=== PATIENT | male | born 1960 | race Caucasian/White ===

== ENCOUNTER 2016-04-25 19:54 | Emergency (ER) | payer MEDICAID ==
--- NOTE | 2016-04-25 20:28 | EDPHY ---
H & P Smoking Status: Current every day smoker Time Seen by Provider: 04/25/16 19:58 HPI/ROS: HPI Suicidal, off psych meds. 55-year-old male by ambulance. This patient has a history of severe depressive disorder and alcohol abuse. He is also homeless. He reports that he was seen at [facility] earlier today with complaint of depression and suicidal ideation. He was given Valium and discharge. He then went to the [facility] with the same complaint, he was given oral Ativan and discharged from there. He told the staff there that he was going to jump in front of traffic and that he felt unstable because he has been off his meds for weeks and was suicidal. They called the ambulance service and was brought to our emergency department for evaluation. ROS: Constitutional: No fever, no chills. No weakness. Eyes: No discharge. No changes in vision. ENT: No sore throat. No nasal congestion or rhinorrhea. Respiratory: No cough. No shortness of breath. Cardiac: No chest pain, no palpitations. Gastrointestinal: No abdominal pain, no vomiting, no diarrhea. Genitourinary: No hematuria. No dysuria or increased frequency with urination. Musculoskeletal: No back pain. No neck pain. No myalgias or arthralgias. Skin: No rashes. Neurological: No headache. No focal weakness or altered sensation. Past medical history: Alcohol abuse, severe depressive disorder head injury, head injury, coronary artery disease, pneumonia, COPD, homeless. Social history: Homeless. History of alcohol abuse. Drinks a pt of whiskey a day at least. States his last drink was this morning. Smoker. Physical Exam: General Appearance: Alert, mildly agitated. This patient is responding to questions appropriately and in full sentences. This patient appears well- hydrated and well-nourished. Eyes: Pupils equal and round no pallor or injection. No lid edema, erythema or injection. ENT, Mouth: Poor dentition. Mucous membranes are moist. The pharyngeal tissues are unremarkable. No edema or swelling. No asymmetry suggestive of abscess. No erythema or exudates. Respiratory: There are no retractions, lungs are clear to auscultation with good air movement bilaterally. Cardiovascular: Regular rate and rhythm. No murmur. Gastrointestinal: Abdomen is soft and nontender, no masses, bowel sounds normal. No focal tenderness at McBurney's point. No Jordan sign. Neurological: Motor sensory function is grossly intact. Cranial nerves are normal. Gait is normal. Skin: Warm and dry, no rashes. Musculoskeletal: Neck is supple and nontender. Extremities are symmetrical. All joints range without pain or impingement. Psychiatric: As above. Database: EKG: Imaging: Procedures: Emergency department course: IV placed. Appropriate blood work will be sent. [facility] notified at 8:30 p.m.. The patient is clinically sober responding to questions appropriately to me. Feel he is suitable for evaluation by [facility]. 9:30 p.m., patient had a preliminary evaluation by [facility]. They do want to place him on an M1 hold. And have him evaluated once his blood work and urine tox screens are back. 11:50 p.m., patient awaiting evaluation by [facility]. He has been medically cleared. His care was turned over to Dr. Cortez Whipple. Differential Diagnosis: The differential diagnosis on this patient includes but is not limited to major depression, situational depression, mood disorder, alcohol abuse, malingering. This represents a partial list of diagnoses considered. These considerations are based on history, physical exam, past history, reassessment and diagnostic testing. (Kelvin West) Constitutional: Initial Vital Signs Temperature (C) 37.0 C 04/25/16 19:55 Heart Rate 90 04/25/16 19:55 Respiratory Rate 16 04/25/16 19:55 Blood Pressure 99/69 L 04/25/16 19:55 O2 Sat (%) 93 04/25/16 19:55 O2 Delivery Mode Room Air Allergies/Adverse Reactions: codeine Allergy (Verified 04/28/15 15:15) Home Medications: Medication Instructions Recorded ARIPiprazole [Abilify 10 mg (*)] 20 mg PO DAILY #30 tab 06/11/15 Cyclobenzaprine [Flexeril 10 MG 10 mg PO TID #45 tab 06/11/15 (*)] FLUoxetine [Prozac 10 MG (*)] 30 mg PO DAILY #45 cap 06/11/15 Famotidine [Pepcid 20 MG (*)] 20 mg PO BID #30 tab 06/11/15 Gabapentin [Neurontin 300 MG (*)] 300 mg PO BID #30 cap 03/04/16 Hydrochlorothiazide [HCTZ (*)] 25 mg PO DAILY #30 tab 06/11/15 Hydrocodone/APAP 5/325 [[place] 1 tab PO Q4 PRN #45 tab 06/11/15 5/325 (*)] Pantoprazole Sodium [Protonix 40mg 40 mg PO BID #60 tab 06/11/15 (*)] clonazePAM [klonoPIN (*)] 1 mg PO BID #30 tab 06/11/15 traZODone [traZODONE 100MG (*)] 150 mg PO HS #30 tab 06/11/15 AZITHROMYCIN [Z-PACK] 250 mg PO DAILY #1 packet 11/19/15 Albuterol [Proventil Inhaler] 1 - 2 puffs IH Q4 #1 mdi 11/19/15 predniSONE 40 mg PO DAILY #10 tab 11/19/15 Medical Decision Making ED Course/Re-evaluation: 0735: patient has been evaluated by EPS. There pending placement. Patient signed over at 7:00 a.m. shift change to Dr. Trejo. No acute events overnight. (Cortez Whipple) Other Provider: I assumed care at 7:00 a.m.. The patient is currently awaiting placement. He has been medically cleared and been evaluated by Mental Health. He has a history of depression, alcohol abuse and homelessness and is contemplating running into traffic. He is on a M1 hold. 3:00 p.m. care transferred to Dr. Cuco Puente. (Gabino Trejo) I assumed care of the patient at shift changed with evaluation/possible placement in process. Update at 5:00 p.m.: The patient has been accepted at the [facility] for further psychiatric stabilization. I have filled out the EMTALA transfer form. (Cuco Puente) - Data Points Laboratory Results: Laboratory Results 04/25/16 21:02 04/25/16 21:02 Medications Given: Discontinued Medications Chlordiazepoxide HCl (Librium) 25 mg PO EDNOW ONE Stop: 04/26/16 11:30 Last Admin: 04/26/16 11:49 Dose: 25 mg Lorazepam (Ativan Injection) 1 mg IVP EDNOW ONE Stop: 04/26/16 12:20 Last Admin: 04/26/16 12:20 Dose: 1 mg Departure - Departure Disposition: Other Psych, Not Dave Clinical Impression: Alcohol abuse Depression Qualifiers: Depression Type: major depressive disorder Major depression recurrence: single episode Active/Remission status: currently active Major depression episode severity: severe Psychotic features: without psychotic features Qualifier Code: (F32.2) Major depressive disorder, single episode, severe without psychotic features Condition: Fair Referrals: Patient,NotPresent [Unknown] - As per Instructions
[2016-04-25 21:06] LABS: % IMMATURE GRANULYOCYTES 0.4 % (0.0-1.1); ABSOLUTE IMMATURE GRANULOCYTES 0.02 10^3/uL (0.00-0.10); ADD DIFF? NO; ADD MORPH? NO; ADD SCAN? NO; ATYPICAL LYMPHOCYTE FLAG 10 (0-99); FRAGMENT RBC FLAG 0 (0-99); HEMATOCRIT 36.8 % (40.0-51.0); HEMOGLOBIN 11.9 g/dL (13.7-17.5); LEFT SHIFT FLG 0 (0-99); LIPEMIA HEMOLYSIS FLAG 80 (0-99); MEAN CELL HEMOGLOBIN 27.6 pg (27.9-34.1); MEAN CELL HEMOGLOBIN CONCENTR. 32.3 g/dL (32.4-36.7); MEAN CELL VOLUME 85.4 fL (81.5-99.8); MEAN PLATELET VOLUME 8.6 fL (8.7-11.7); PLATELET CLUMPS FLAG 0 (0-99); PLATELET COUNT 259 10^3/uL (150-400); RED BLOOD CELL COUNT 4.31 10^6/uL (4.40-6.38)
[2016-04-25 21:20] LABS: ANION GAP 8 mEq/L (8-16); CALCIUM 8.7 mg/dL (8.5-10.4); CARBON DIOXIDE 25 mEq/l (22-31); CHLORIDE 105 mEq/L (97-110); CREATININE 0.8 mg/dL (0.7-1.3); ETHANOL SERUM < 10 mg/dL (0-10); GLOMERULAR FILTRATION RATE > 60; GLUCOSE 103 mg/dL (70-100); POTASSIUM 4.4 mEq/L (3.5-5.2); SALICYLATE < 1.0 mg/dL (2.0-20.0); SODIUM 138 mEq/L (134-144)
[2016-04-26] MEDS ORDERED: chlordiazePOXIDE 25 MG CAP PO ONE (11:29)
[2016-04-26] MEDS ORDERED: LORazepam 2 MG/ML INJ ONE (12:15)
[2016-04-26] MEDS ORDERED: LORazepam 2 MG/ML INJ IVP ONE (12:19)
[2016-04-27] MEDS ORDERED: LORazepam 1 MG TAB PO ONE ×2 (08:41→13:51)
[2016-04-27] MEDS ORDERED: FAMOTIDINE 20 MG TAB PO ONE (08:41)
[2016-04-27 14:24] VITALS: BP 124/76; PULSE 71; RESP 17; TEMP 98.4; O2SAT 96
== END 2016-04-27 14:22 ==
LOC: EDUNIT#
DX: R45.851 Suicidal ideations (principal); F32.2 Major depressive disorder, single episode, severe without psychotic features; F10.10 Alcohol abuse, uncomplicated; I25.10 Atherosclerotic heart disease of native coronary artery without angina pectoris; J44.9 Chronic obstructive pulmonary disease, unspecified; F17.200 Nicotine dependence, unspecified, uncomplicated
CPT/HCPCS: 80305; 96374; G0480

== ENCOUNTER 2016-05-24 20:54 | Emergency (ER) | payer MEDICAID ==
[2016-05-24 22:04] LABS: % IMMATURE GRANULYOCYTES 0.3 % (0.0-1.1); ABSOLUTE IMMATURE GRANULOCYTES 0.02 10^3/uL (0.00-0.10); ADD DIFF? NO; ADD MORPH? NO; ADD SCAN? NO; ATYPICAL LYMPHOCYTE FLAG 0 (0-99); FRAGMENT RBC FLAG 0 (0-99); HEMATOCRIT 34.9 % (40.0-51.0); HEMOGLOBIN 11.5 g/dL (13.7-17.5); LEFT SHIFT FLG 0 (0-99); LIPEMIA HEMOLYSIS FLAG 80 (0-99); MEAN CELL HEMOGLOBIN 28.5 pg (27.9-34.1); MEAN CELL VOLUME 86.6 fL (81.5-99.8); MEAN PLATELET VOLUME 9.3 fL (8.7-11.7); PLATELET CLUMPS FLAG 0 (0-99); PLATELET COUNT 220 10^3/uL (150-400); RED BLOOD CELL COUNT 4.03 10^6/uL (4.40-6.38); RED CELL DISTRIBUTION WIDTH 14.9 % (11.5-15.2)
[2016-05-24 22:38] LABS: ANION GAP 7 mEq/L (8-16); CALCIUM 9.1 mg/dL (8.5-10.4); CARBON DIOXIDE 25 mEq/l (22-31); CHLORIDE 106 mEq/L (97-110); CREATININE 0.7 mg/dL (0.7-1.3); ETHANOL SERUM < 10 mg/dL (0-10); GLOMERULAR FILTRATION RATE > 60; GLUCOSE 115 mg/dL (70-100); POTASSIUM 3.6 mEq/L (3.5-5.2); SODIUM 138 mEq/L (134-144)
--- NOTE | 2016-05-24 23:02 | EDPHY ---
Mental Health General Previous Psychiatric History: substance abuse, depression Smoking Status: Heavy smoker Time Patient Placed on M1 Hold: 20:10 Time of Transfer of Care: 00:[address]:: David Course: patient remained stable over course of my shift Narrative: CHIEF COMPLAINT: M1 hold HISTORY OF PRESENT ILLNESS: 55-year-old male presents to the emergency department on an M1 hold from [facility]. Patient is having auditory and visual hallucinations and is paranoid that people are out to get him. Patient has disorganized thoughts. He reports he snorted methamphetamines 3 days ago, reports he smokes marijuana daily, alcohol last yesterday. He reports multiple hospitalizations for suicidal thoughts. He denies feeling suicidal at this time. He denies homicidal ideations. Patient denies any pain. No chest pain or shortness of breath. No abdominal pain. REVIEW OF SYSTEMS: A comprehensive 10 point review of systems is otherwise negative aside from elements mentioned in the history of present illness. Physical Exam Gen: Awake and alert HEENT: moist mucous membranes NECK: no meningismus CV: regular rate and regular rhythm PULM: CTAB, no wheezes ABDOMEN: soft, non tender to palpation, BS present BACK: No CVA tenderness NEURO: Follows commands, no facial asymmetry, moves all extremities EXTREMITIES: normal appearing SKIN: no rash or break in skin on exposed skin PSYCH: Patient with rapid speech, reports auditory hallucinations, visual hallucinations, denies suicidal ideations. (Swathi Hu) [id number] patient signed out to al from ESMER Hu pending mental health evaluation. ( Kamar Hernandez) Patient's care transferred to al at 7:[address] Marcin Ochoa. Patient is awake and alert and eating breakfast. He had methamphetamine positive at 11:00 p.m. and we will be evaluated later this morning. He is on a hold. 2:55 a.m. mental Health has evaluated the patient. They feel that he is safe for discharge all the patient is not happy about this. he stated that he would kill himself if discharged but it is my feeling and the mental health workers that he is simply stating this because his secondary motivation is retirement. He has been admitted several times in the past under similar conditions and no significant progress made during inpatient stay. They will consult their on-call psychiatrist. Care transferred to Dr. Corky Flanagan at shift change. (Gabino Trejo) Medical Decision Makin-Report passed on to Dr. Hernandez at the end of my shift. Pt urine tox screen is positive for meth. He is medically cleared. EPS will evaluate him in 8 hours. (Swathi Hu) The patient has been evaluated by mental health and they would like to discharge him is had multiple admissions they feel he does not meet criteria. The patient escalated and then has threatened to harm himself at discharge. He has been re-evaluated by mental health in the current agreement is that the patient will go to detox on a Librium protocol as he is also a drinker and to prevent alcohol withdrawal. (Corky Flanagan) - Objective Vital Signs: Initial Vital Signs Temperature (C) 36.3 C 05/24/16 21:04 Heart Rate 97 05/24/16 21:04 Respiratory Rate 12 05/24/16 21:04 Blood Pressure 128/86 H 05/24/16 21:04 O2 Sat (%) 96 05/24/16 21:04 O2 Delivery Mode Room Air Allergies/Adverse Reactions: codeine Allergy (Verified 04/28/15 15:15) Home Medications: Medication Instructions Recorded NK [No Known Home Meds] 05/25/16 Medications Given: Discontinued Medications Acetaminophen/Hydrocodone Bitart ([place] 5/325) 1 tab PO EDNOW ONE Stop: 05/25/16 06:24 Last Admin: 05/25/16 06:32 Dose: 1 tab Ibuprofen (Motrin) 600 mg PO EDNOW ONE Stop: 05/25/16 08:21 Last Admin: 05/25/16 08:24 Dose: 600 mg Lorazepam (Ativan) 1 mg PO EDNOW ONE Stop: 05/24/16 23:33 Last Admin: 05/24/16 23:40 Dose: 1 mg Lorazepam (Ativan) 0.25 mg PO EDNOW ONE Stop: 05/25/16 12:22 Last Admin: 05/25/16 12:28 Dose: 0.25 mg Lorazepam (Ativan) 0.5 mg PO ONCE ONE Stop: 05/25/16 15:07 Last Admin: 05/25/16 15:15 Dose: 0.5 mg Laboratory Results: Laboratory Results 05/24/16 21:45 05/24/16 21:45 Departure - Departure Disposition: Home, Routine, Self-Care Clinical Impression: Polysubstance abuse Condition: Fair Instructions: Chlordiazepoxide/Clidinium (By mouth) Additional Instructions: Please go directly to [facility] as agreed upon they are expecting you (in cab ride given)--return for future issues or feeling unsafe Referrals: Patient,NotPresent [Unknown] - As per Instructions
[2016-05-24] MEDS ORDERED: LORazepam 1 MG TAB PO ONE (23:32)
[2016-05-25] MEDS ORDERED: HYDROCODONE/APAP 5/325 TAB PO ONE (06:23)
[2016-05-25] MEDS ORDERED: IBUPROFEN 600 MG TAB PO ONE ×2 (08:20→16:24)
[2016-05-25 08:26] VITALS: RESP 16; O2SAT 98
[2016-05-25] MEDS ORDERED: LORazepam 0.5 MG TAB PO ONE ×2 (12:21→15:06)
[2016-05-25] MEDS ORDERED: CHLORDIAZEPOXIDE 25MG PREPK#6 BTL TAKEHOME ONE (16:16)
[2016-05-25] MEDS ORDERED: FAMOTIDINE 20 MG TAB ONE (16:47)
[2016-05-25] MEDS ORDERED: FAMOTIDINE 20 MG TAB PO ONE (16:47)
[2016-05-25 17:09] VITALS: BP 135/76; PULSE 87; TEMP 97.7
== END 2016-05-25 17:09 | disposition home or self-care (01) ==
LOC: EDUNIT#
DX: F19.10 Other psychoactive substance abuse, uncomplicated (principal); F17.200 Nicotine dependence, unspecified, uncomplicated
CPT/HCPCS: 80305; G0480

== ENCOUNTER 2016-07-04 20:58 | Emergency (ER) | payer MEDICAID ==
[2016-07-04 21:46] LABS: % IMMATURE GRANULYOCYTES 0.3 % (0.0-1.1); ABSOLUTE IMMATURE GRANULOCYTES 0.02 10^3/uL (0.00-0.10); ADD DIFF? NO; ADD MORPH? NO; ADD SCAN? NO; ATYPICAL LYMPHOCYTE FLAG 20 (0-99); FRAGMENT RBC FLAG 0 (0-99); HEMATOCRIT 43.1 % (40.0-51.0); HEMOGLOBIN 14.3 g/dL (13.7-17.5); LEFT SHIFT FLG 0 (0-99); LIPEMIA HEMOLYSIS FLAG 80 (0-99); MEAN CELL HEMOGLOBIN 28.9 pg (27.9-34.1); MEAN CELL HEMOGLOBIN CONCENTR. 33.2 g/dL (32.4-36.7); MEAN CELL VOLUME 87.1 fL (81.5-99.8); PLATELET CLUMPS FLAG 0 (0-99); PLATELET COUNT 221 10^3/uL (150-400); RED BLOOD CELL COUNT 4.95 10^6/uL (4.40-6.38); RED CELL DISTRIBUTION WIDTH 16.2 % (11.5-15.2)
[2016-07-04 21:59] LABS: ANION GAP 9 mEq/L (8-16); CALCIUM 9.2 mg/dL (8.5-10.4); CARBON DIOXIDE 25 mEq/l (22-31); CHLORIDE 103 mEq/L (97-110); CREATININE 0.9 mg/dL (0.7-1.3); ETHANOL SERUM < 10 mg/dL (0-10); GLOMERULAR FILTRATION RATE > 60; GLUCOSE 107 mg/dL (70-100); POTASSIUM 4.1 mEq/L (3.5-5.2); SALICYLATE < 1.0 mg/dL (2.0-20.0); SODIUM 137 mEq/L (134-144)
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
[2016-07-04] MEDS ORDERED: FAMOTIDINE 20 MG TAB PO ONE (23:24)
[2016-07-05] MEDS: ARIPiprazole 10 MG TAB PO SCH ×2 (00:03→09:23)
[2016-07-05 07:53] VITALS: RESP 16
[2016-07-05 13:02] VITALS: O2SAT 96
[2016-07-05 18:42] VITALS: BP 106/76; PULSE 85; TEMP 98.2
== END 2016-07-05 19:50 ==
DX: R45.851 Suicidal ideations (principal); F33.2 Major depressive disorder, recurrent severe without psychotic features; F17.200 Nicotine dependence, unspecified, uncomplicated
CPT/HCPCS: 80305; G0480

== ENCOUNTER 2016-11-09 08:15 | Inpatient (IN) | payer MEDICAID ==
[2016-11-09] MEDS ORDERED: LORazepam 2 MG/ML INJ ONE (08:26)
[2016-11-09] MEDS ORDERED: LORazepam 2 MG/ML INJ IVP ONE (08:26)
[2016-11-09] MEDS ORDERED: NS 1,000 ML IV ONE (08:35)
--- NOTE | 2016-11-09 08:37 | CPEKG ---
Heart Rate: 68 RR Interval: 882 P-R Interval: 132 QRSD Interval: 90 QT Interval: 436 QTC Interval: 464 P [place]: 76 QRS [place]: 83 T Wave [place]: 82 EKG Severity - ABNORMAL ECG - EKG Impression: SINUS RHYTHM EKG Impression: LEFT ATRIAL ABNORMALITY Electronically Signed By: Praveen Houston 09-Nov-2016 15:27:18
[2016-11-09 08:40] LABS: % IMMATURE GRANULYOCYTES 0.3 % (0.0-1.1); ABSOLUTE IMMATURE GRANULOCYTES 0.04 10^3/uL (0.00-0.10); ADD DIFF? NO; ADD MORPH? NO; ADD SCAN? NO; ATYPICAL LYMPHOCYTE FLAG 0 (0-99); FRAGMENT RBC FLAG 0 (0-99); LEFT SHIFT FLG 0 (0-99); LIPEMIA HEMOLYSIS FLAG 90 (0-99); MEAN CELL HEMOGLOBIN 30.6 pg (27.9-34.1); MEAN CELL HEMOGLOBIN CONCENTR. 35.9 g/dL (32.4-36.7); MEAN CELL VOLUME 85.2 fL (81.5-99.8); MEAN PLATELET VOLUME 9.5 fL (8.7-11.7); PLATELET CLUMPS FLAG 10 (0-99); PLATELET COUNT 262 10^3/uL (150-400); RED BLOOD CELL COUNT 4.58 10^6/uL (4.40-6.38)
--- NOTE | 2016-11-09 08:40 | EDPHY ---
H & P Time Seen by Provider: 11/09/16 08:21 - Personal History Tetanus Vaccine Date: 2014 - Medical/Surgical History Hx Asthma: Yes Hx Chronic Respiratory Disease: Yes Hx Diabetes: No Hx Cardiac Disease: Yes Hx Renal Disease: Yes Hx Cirrhosis: No Hx Alcoholism: Yes Hx HIV/AIDS: No Hx Splenectomy or Spleen Trauma: No Other PMH: asthma, hep C, COPD, CAD, depression, GERD, cardiac stents x 2, subdural hematoma, chronic back pain, renal failure - Social History Smoking Status: Heavy smoker Constitutional: Initial Vital Signs Temperature (C) 35.2 C L 11/09/16 08:20 Heart Rate 76 11/09/16 08:20 Respiratory Rate 20 11/09/16 08:20 Blood Pressure 121/72 H 11/09/16 08:20 O2 Sat (%) 98 11/09/16 08:20 O2 Delivery Mode Room Air Allergies/Adverse Reactions: codeine Allergy (Verified 04/28/15 15:15) Home Medications: Medication Instructions Recorded NK [No Known Home Meds] 05/25/16 Medical Decision Making - Diagnostics Imaging Results: Imaging Impressions Chest X-Ray 11/09/16 08:27 Impression: Nothing acute identified. ED Course/Re-evaluation: CHIEF COMPLAINT: Chest pain. HISTORY OF PRESENT ILLNESS: The patient is a 55-year-old male with a history of CAD and 2 stents who presents with chest pain and chills that began last night. He admits associated vomiting and cough. The pain is severe and described as a pressure. He denies abdominal pain, fever, diarrhea, or other complaints at this time. REVIEW OF SYSTEMS: A 10 point review of systems was performed and is negative with the exception of the elements mentioned in the history of present illness. PHYSICAL EXAM: HR, BP, O2 Sat, RR. Temp noted General Appearance: Alert, well hydrated, appropriate, and non-toxic appearing. Head: Atraumatic without scalp tenderness or obvious injury Eyes: Pupils equal, round, reactive to light and accommodation, EOMI, no trauma , no injection. Ears: Clear bilaterally, no perforation, normal landmarks Nose: Atraumatic, no rhinorrhea, clear. Throat: There is no erythema or exudates, no lesions, normal tonsils, mucus membranes moist. Neck: Supple, 2+ carotid upstroke, nontender, no lymphadenopathy. Respiratory: No retractions, no distress, no wheezes, and no accessory muscle use. Lungs are clear to auscultation bilaterally. Cardiovascular: Regular rate and rhythm, no murmurs, rubs, or gallops. Bilateral carotid, radial, dorsalis pedis, and posterior tibial pulses intact. Good capillary refill all extremities. Gastrointestinal: Abdomen is soft, nontender, non-distended, no masses, no rebound, no guarding, no peritoneal signs. Musculoskeletal: Normal active ROM of all extremities, atraumatic. Neurological: Alert, appropriate, and interactive. The patient has normal DTRs and non-focal cranial nerves, motor, sensory, and cerebellar exam. Skin: No rashes, good turgor, no nodules on palpation. Past medical history: Asthma, hep C, COPD, CAD, depression, GERD, cardiac stents x 2, subdural hematoma, chronic back pain, renal failure Family history: Unknown. Social history: Homeless. DIAGNOSTICS/PROCEDURES/CRITICAL CARE TIME: The 12 lead EKG was interpreted by myself. See hard copy and/or "tracemaster" electronic copy for interpretation. Sinus rhythm, slight ST elevation in precordial leads. Study: PA and Lateral Chest X-ray Indication: Chest pain Results: I viewed the images myself on the PACS system. My interpretation of the images is: no acute cardiopulmonary disease. The radiologist interpretation is pending at the time of this dictation. DIFFERENTIAL DIAGNOSIS: The differential diagnosis for the patient's chest pain included but was not limited to myocardial ischemia, pulmonary embolus, chest wall pain, pleural inflammation, and pulmonary infectious causes. MEDICAL DECISION MAKIN-year-old male with CAD and 2 cardiac stents presents with chest pain and chills. An IV was established and labs ordered including cardiac enzymes. EKG, chest x-ray ordered. Due to his history I am concerned for a cardiac process. 1mg IV Ativan administered. Temperature 35.2. Bairhugger placed. EKG shows slight ST elevation in precordial leads but no outright signs of [place]. I reviewed the patient's laboratory studies. WBC elevated at 12.16 indicating possible infectious process. He shows signs of renal insufficiency including creatinine of 1.9. Troponin elevated at 0.054, however this could be due to his elevated creatinine and insufficiency. Plan for admission for further workup. Cardiology paged. [id number]: Consulted with Dr. Flores, cardiology. I informed him of the patient's course. [id number]: Consulted with Brittanie Rivero, hospitalist. She accepts admission for Dr. Ren. - Data Points Laboratory Results: Laboratory Results 11/09/16 08:30 11/09/16 08:30 11/09/16 11/09/16 11/09/16 08:30 08:30 08:30 WBC 12.16 10^3/uL H 10^3/uL (3.80-9.50) RBC 4.58 10^6/uL 10^6/uL (4.40-6.38) Hgb 14.0 g/dL g/dL (13.7-17.5) Hct 39.0 % L % (40.0-51.0) MCV 85.2 fL fL (81.5-99.8) MCH 30.6 pg pg (27.9-34.1) MCHC 35.9 g/dL g/dL (32.4-36.7) RDW 12.0 % % (11.5-15.2) Plt Count 262 10^3/uL 10^3/uL (150-400) MPV 9.5 fL fL (8.7-11.7) Neut % (Auto) 83.0 % H % (39.3-74.2) Lymph % (Auto) 9.0 % L % (15.0-45.0) [place] % (Auto) 7.5 % % (4.5-13.0) Eos % (Auto) 0.0 % L % (0.6-7.6) Baso % (Auto) 0.2 % L % (0.3-1.7) Nucleat RBC Rel Count 0.0 % % (0.0-0.2) Absolute Neuts (auto) 10.10 10^3/uL H 10^3/uL (1.70-6.50) Absolute Lymphs (auto) 1.09 10^3/uL 10^3/uL (1.00-3.00) Absolute Monos (auto) 0.91 10^3/uL H 10^3/uL (0.30-0.80) Absolute Eos (auto) 0.00 10^3/uL L 10^3/uL (0.03-0.40) Absolute Basos (auto) 0.02 10^3/uL 10^3/uL (0.02-0.10) Absolute Nucleated RBC 0.00 10^3/uL 10^3/uL (0-0.01) Immature Gran % 0.3 % % (0.0-1.1) Immature Gran # 0.04 10^3/uL 10^3/uL (0.00-0.10) PT 13.7 SEC SEC (12.0-15.0) INR 1.06 (0.83-1.16) APTT 26.6 SEC SEC (23.0-38.0) D-Dimer 0.36 ug/mLFEU ug/mLFEU (0.00-0.50) Sodium 137 mEq/L mEq/L (134-144) Potassium 4.4 mEq/L mEq/L (3.5-5.2) Chloride 101 mEq/L mEq/L (97-110) Carbon Dioxide 10 mEq/l L mEq/l (22-31) Anion Gap 26 mEq/L H mEq/L (8-16) BUN 83 mg/dL H mg/dL (7-23) Creatinine 1.9 mg/dL H mg/dL (0.7-1.3) Estimated GFR 37 Glucose 82 mg/dL mg/dL (70-100) Calcium 9.3 mg/dL mg/dL (8.5-10.4) Troponin I 0.054 ng/mL H ng/mL (0-0.034) NT-Pro-B Natriuret Pep 926 pg/mL H pg/mL (0-125) Medications Given: Discontinued Medications Sodium Chloride (Ns) 1,000 mls @ 0 mls/hr IV ONCE ONE PRN Reason: Wide Open Stop: 11/09/16 08:36 Last Admin: 11/09/16 08:36 Dose: 1,000 mls Lorazepam (Ativan Injection) 1 mg IVP EDNOW ONE Stop: 11/09/16 08:27 Last Admin: 11/09/16 08:30 Dose: 1 mg Departure - Departure Disposition: [facility] Clinical Impression: Elevated troponin, Dehydration Chest pain Qualifiers: Chest pain type: unspecified Qualified Code(s): R07.9 - Chest pain, unspecified Condition: Fair Report Scribed for: Praveen Houston Report Scribed by: Norm Hernandez Date of Report: 11/09/16 Time of Report: 08:44
[2016-11-09 09:00] LABS: ANION GAP 26 mEq/L (8-16); CALCIUM 9.3 mg/dL (8.5-10.4); CARBON DIOXIDE 10 mEq/l (22-31); CHLORIDE 101 mEq/L (97-110); CREATININE 1.9 mg/dL (0.7-1.3); GLOMERULAR FILTRATION RATE 37; GLUCOSE 82 mg/dL (70-100); POTASSIUM 4.4 mEq/L (3.5-5.2); SODIUM 137 mEq/L (134-144)
[2016-11-09 09:27] LABS: INR 1.06 (0.83-1.16); PROTIME(PATIENT) 13.7 SEC (12.0-15.0)
[2016-11-09 09:28] LABS: APTT 26.6 SEC (23.0-38.0); TROPONIN I 0.054 ng/mL (0-0.034)
[2016-11-09] MEDS ORDERED: ALBUTEROL 3 ML DEYVIAL IH PRN (12:28)
[2016-11-09] MEDS ORDERED: PROMETHAZINE HCL 25 MG/ML INJ IVP PRN (12:28)
[2016-11-09] MEDS ORDERED: ONDANSETRON DISINTEGRATING 4 MG TAB PO PRN (12:28)
[2016-11-09] MEDS ORDERED: ONDANSETRON 4 MG/2 ML VIAL IVP PRN (12:28)
[2016-11-09] MEDS: NS 1,000 ML IV SCH (13:14)
--- NOTE | 2016-11-09 14:09 | WOCRNPDOC ---
WOCRN Advanced Assessment Note - Skin Integrity Problem, Advanced Assess Sacrum Dressing Type: Open to Air Exudate Amount: None Exudate Characteristic(s): None Maia Wound Tissue: Blanching, Intact Maia Wound Swelling: None Wound Bed Color: Red Skin Integrity Problem Comment: Blanching erythema noted on either side of gluteal cleft and extending up his sacrum, appearance consistent w/ dermatitis r /t exposure to stool/moisture. Skin is blanching throughout and intact. Recommend application of dimethicone cream BID. Report given to home and family living professorAMIRAH Sierra.
[2016-11-09] MEDS: HEPARIN 5,000 UNIT/0.5 ML SYR SC SCH ×2 (14:15→23:39)
[2016-11-09 15:08] LABS: COLOR YELLOW; LEUKOCYTE ESTERASE,URINE NEGATIVE (NEGATIVE); NITRITE,URINE NEGATIVE (NEGATIVE)
[2016-11-09 15:53] LABS: PHENCYCLIDINE URINE BCH < 6 ng/ml (NEGATIVE); PHENCYCLIDINE URINE BCH NEGATIVE (NEGATIVE); TETRAHYDROCANNABINOL URINE < 5 ng/mL (NEGATIVE); TETRAHYDROCANNABINOL URINE NEGATIVE (NEGATIVE)
[2016-11-09] MEDS: LORazepam 2 MG/ML INJ IVP PRN ×2 (16:18→23:41)
--- NOTE | 2016-11-09 16:25 | PDGENHP ---
History and Physical - Chief Complaint chest pain/memory loss - History of Present Illness 55 yo M with PMH of CAD sp NV with stents as well as etoh abuse and homelessness presenting with c/o chest pain and memory loss. Patient states that he has little to no recollection of the last 3 days. He states that he was brought in by EMS when he was found staggering around and knocking on houses of people he did not know. He denies to me that he was drinking or using drugs for the last several days, but reportedly told the nurse on admit that he was "partying" and using meth. He denies every having memory issues like this in the past. He notes that currently his main issue is just that he has ongoing substernal chest pain. It does not radiate and is not associated with other sxs including nausea or diaphoresis. He states that the chest pain is very similar to the chest pain he had when he had an NV years ago. He has been seen in this hospital as well as other local hospitals for similar pain in the recent past, and did have a cardiac cath in 2014 which was negative for significant CAD. History Information - Allergies/Home Medication List Allergies/Adverse Reactions: codeine Allergy (Verified 04/28/15 15:15) Home Medications: NK [No Known Home Meds] 05/25/16 [Last Taken Unknown] I have personally reviewed and updated: family history, medical history, social history, surgical history - Past Medical History coronary artery disease, COPD, hypertension, psychiatric history (multiple psych visits for suicidal ideation/suicide attempt) Additional medical history: Hepatitis C. MRSA cellulitis. SDH - Surgical History Reports: coronary stent - Family History Positive for: CAD (father of NV at 70) - Social History Smoking Status: Heavy smoker Alcohol Use: Heavy Drug Use: Marijuana Additional social history: homeless, apparently has 2 children who live in other states Review of Systems ROS: 10pt was reviewed & negative except for what was stated in HPI & below Physical Exam Temp Pulse Resp BP Pulse Ox 36.5 C 78 16 117/67 99 11/09/16 11:05 11/09/16 11:05 11/09/16 11:05 11/09/16 11:05 11/09/16 11:05 O2 (L/minute) 2 Constitutional: not in pain, chronically ill appearing, unkempt Eyes: PERRL Ears, Nose, Mouth, Throat: moist mucous membranes, hearing normal, poor dentition Cardiovascular: regular rate and rhythym, no murmur, rub, or gallop, No edema Respiratory: no respiratory distress, no rales or rhonchi, clear to auscultation Gastrointestinal: normoactive bowel sounds, soft, non-tender abdomen Genitourinary: no bladder tenderness Skin: warm, normal color Musculoskeletal: full muscle strength, no muscle tenderness Neurologic: AAOx3 Psychiatric: interacting appropriately, not anxious Lab Data & Imaging Review 11/09/16 08:30 11/09/16 08:30 WBC 12.16 10^3/uL (3.80-9.50) H 11/09/16 08:30 RBC 4.58 10^6/uL (4.40-6.38) 11/09/16 08:30 Hgb 14.0 g/dL (13.7-17.5) 11/09/16 08:30 Hct 39.0 % (40.0-51.0) L 11/09/16 08:30 MCV 85.2 fL (81.5-99.8) 11/09/16 08:30 MCH 30.6 pg (27.9-34.1) 11/09/16 08:30 MCHC 35.9 g/dL (32.4-36.7) 11/09/16 08:30 RDW 12.0 % (11.5-15.2) 11/09/16 08:30 Plt Count 262 10^3/uL (150-400) 11/09/16 08:30 MPV 9.5 fL (8.7-11.7) 11/09/16 08:30 Neut % (Auto) 83.0 % (39.3-74.2) H 11/09/16 08:30 Lymph % (Auto) 9.0 % (15.0-45.0) L 11/09/16 08:30 [place] % (Auto) 7.5 % (4.5-13.0) 11/09/16 08:30 Eos % (Auto) 0.0 % (0.6-7.6) L 11/09/16 08:30 Baso % (Auto) 0.2 % (0.3-1.7) L 11/09/16 08:30 Nucleat RBC Rel Count 0.0 % (0.0-0.2) 11/09/16 08:30 Absolute Neuts (auto) 10.10 10^3/uL (1.70-6.50) H 11/09/16 08:30 Absolute Lymphs (auto) 1.09 10^3/uL (1.00-3.00) 11/09/16 08:30 Absolute Monos (auto) 0.91 10^3/uL (0.30-0.80) H 11/09/16 08:30 Absolute Eos (auto) 0.00 10^3/uL (0.03-0.40) L 11/09/16 08:30 Absolute Basos (auto) 0.02 10^3/uL (0.02-0.10) 11/09/16 08:30 Absolute Nucleated RBC 0.00 10^3/uL (0-0.01) 11/09/16 08:30 Immature Gran % 0.3 % (0.0-1.1) 11/09/16 08:30 Immature Gran # 0.04 10^3/uL (0.00-0.10) 11/09/16 08:30 PT 13.7 SEC (12.0-15.0) 11/09/16 08:30 INR 1.06 (0.83-1.16) 11/09/16 08:30 APTT 26.6 SEC (23.0-38.0) 11/09/16 08:30 D-Dimer 0.36 ug/mLFEU (0.00-0.50) 11/09/16 08:30 Sodium 137 mEq/L (134-144) 11/09/16 08:30 Potassium 4.4 mEq/L (3.5-5.2) 11/09/16 08:30 Chloride 101 mEq/L (97-110) 11/09/16 08:30 Carbon Dioxide 10 mEq/l (22-31) L 11/09/16 08:30 Anion Gap 26 mEq/L (8-16) H 11/09/16 08:30 BUN 83 mg/dL (7-23) H 11/09/16 08:30 Creatinine 1.9 mg/dL (0.7-1.3) H 11/09/16 08:30 Estimated GFR 37 11/09/16 08:30 Glucose 82 mg/dL (70-100) 11/09/16 08:30 Calcium 9.3 mg/dL (8.5-10.4) 11/09/16 08:30 Troponin I 0.026 ng/mL (0-0.034) 11/09/16 13:05 NT-Pro-B Natriuret Pep 926 pg/mL (0-125) H 11/09/16 08:30 Urine Color YELLOW 11/09/16 14:45 Urine Appearance CLEAR 11/09/16 14:45 Urine pH 6.0 (5.0-7.5) 11/09/16 14:45 Ur Specific [place] 1.019 (1.002-1.030) 11/09/16 14:45 Urine Protein NEGATIVE (NEGATIVE) 11/09/16 14:45 Urine Ketones 1+ (NEGATIVE) H 11/09/16 14:45 Urine Blood NEGATIVE (NEGATIVE) 11/09/16 14:45 Urine Nitrate NEGATIVE (NEGATIVE) 11/09/16 14:45 Urine Bilirubin NEGATIVE (NEGATIVE) 11/09/16 14:45 Urine Urobilinogen NEGATIVE EU (0.2-1.0) 11/09/16 14:45 Ur Leukocyte Esterase NEGATIVE (NEGATIVE) 11/09/16 14:45 Ur Random Creatinine 65.0 mg/dL 11/09/16 14:45 Ur Random Sodium 39 mEq/L (30-90) 11/09/16 14:45 Urine Glucose NEGATIVE (NEGATIVE) 11/09/16 14:45 Urine Opiates Screen NEGATIVE ng/mL (NEGATIVE) 11/09/16 14:45 Urine Barbiturates NEGATIVE ng/mL (NEGATIVE) 11/09/16 14:45 Ur Phencyclidine Scrn NEGATIVE ng/mL (NEGATIVE) 11/09/16 14:45 U Benzodiazepines Scrn NEGATIVE ng/mL (NEGATIVE) 11/09/16 14:45 Urine Cocaine Screen NEGATIVE ng/mL (NEGATIVE) 11/09/16 14:45 U Marijuana (THC) Screen NEGATIVE ng/mL (NEGATIVE) 11/09/16 14:45 Visualized and Interpreted Chest x-ray results: Yes Chest X-Ray results: normal Visualized and Interpreted EKG results: Yes EKG Interpretation: Positive for: normal sinsus rhythm Assessment & Plan Assessment: Chest pain (Acute) Elevated troponin (Acute) Dehydration (Acute) 55 yo M with PMH of CAD, etoh abuse presenting with ANDRY and chest pain as well as memory loss # chest pain: with hx of CAD and prior NV with stents but multiple ER visits/ hospitalization for similar pain without any identification of new issues including by cath in 2015. Will monitor on tele, trend troponins and obtain echocardiogram in am. Given multiple recent hospitalizations for the same, do not think another stress test will be of benefit. # andry: in setting of patient possibly "partying" for the last several days versus having loss of memory for several days and appearing dry on exam. Will obtain ua, urine na, urine creatine. Bladder scan was normal. Will trend. # memory loss: patient initially stating he was "partying" for several days, then stating he does not have any memory of the last several days. Will get drug screen. Non focal neurologic exam. Has a hx of etoh withdrawal and query if there could be component of withdrawal to his memory loss, but does not currently appear to be acutely in withdrawal. Will start CIWA and monitor. # depression with prior suicide attempts/suicidal ideation: recent hospitalization at [facility] for suicidal ideation, seems to be an ongoing/recurrent issue. Currently appears euthymic. # CAD: as per problem 1 # dispo: observation status, will likely dc on 11/10 if stress test is negative Patient new to my care. Old records reviewed and summarized as above. Care plan reviewed with ER doctor including plans for eval of chest pain.
--- NOTE | 2016-11-09 16:51 | ECHO ---
[id number] + + [address] : : [place] [address] : : [phone] + + Adult Echocardiographic Report + ----+ :Name: BALWINDER CANO Irisudy Date: 11/09/2016 03:48 PM : : Hospital Admission Number: [id number] Location: 208: :: 1960 Gender: Male Height: 68 in : :Age: 55 yrs Race: WH Weight: 118 lb : :Reason For Study: Chest Pain : : BSA: 1.6 meters2 : + ----+ MMode/2D Measurements \T\ Calculations IVSd: 0.87 cm LVIDd: 4.5 cm FS: 55.7 % Ao root diam: LVPWd: 0.86 cm LVIDs: 2.0 cm EDV(Teich): 3.4 cm 93.2 ml LA dimension: ESV(Teich): 3.2 cm 12.8 ml EF(Teich): 86.3 % LVLd ap4: 7.6 cm SV(MOD-sp4): EDV(MOD-sp4): 42.0 ml 64.0 ml LVLs ap4: 5.9 cm ESV(MOD-sp4): 22.0 ml EF(MOD-sp4): 65.6 % Normal Measurement Values: + + :LVIDd (3.5-5.7cm) IVSd (0.6-1.1cm) LVPWd (0.6-1.1cm) Aortic Root (2.0-3.7cm)Left Atrium (1.5-4.0cm): :LV Vol(d) (76-115ml) LV Vol(s) (29-48ml) Ejec Fraction (50-65%)PV Eddie (0.6- 1.2m/s) TV Eddie (0.4-1.0m/s) : :MV E Eddie (0.8-1.0m/s)MV A Eddie (0.3-1.0m/s)LVOT Eddie (0.7-1.2m/s) Asc Ao Eddie ( 0.9-1.8m/s) : + + Doppler Measurements \T\ Calculations MV E max eddie: 63.7 cm/sec Ao V2 max: 126.2 cm/sec TR max eddie: 226.7 cm/sec MV A max eddie: 60.7 cm/sec Ao max P.4 mmHg TR max P.6 mmHg MV E/A: 1.0 RAP systole: 5.0 mmHg RVSP(TR): 25.6 mmHg Left Ventricle The left ventricle is normal in size. There is normal left ventricular wall thickness. Left ventricular systolic function is normal. Ejection Fraction = 65-70%. No regional wall motion abnormalities noted. Right Ventricle The right ventricle is normal in size and function. Atria The left atrial size is normal. Right atrial size is normal. The interatrial septum is intact with no evidence for an atrial septal defect. Mitral Valve The mitral valve is normal in structure and function. There is no evidence of mitral valve prolapse. There is no mitral valve stenosis. There is trace to mild mitral regurgitation. Tricuspid Valve Normal tricuspid valve. There is mild to moderate tricuspid regurgitation. Right ventricular systolic pressure is normal. Aortic Valve The aortic valve is trileaflet. The aortic valve opens well. There is no aortic stenosis. There is no aortic insufficiency. Pulmonic Valve The pulmonic valve is normal in structure and function. There is no pulmonic valvular regurgitation. Great Vessels The aortic root is normal size. Pericardium/Pleural There is no pericardial effusion. Conclusion A complete two-dimensional transthoracic echocardiogram was performed (2D, M-mode, Doppler and color flow Doppler). Left ventricular systolic function is normal. Ejection Fraction = 65-70%. There is trace to mild mitral regurgitation. There is mild to moderate tricuspid regurgitation. Right ventricular systolic pressure is normal. Final Reading Physician: Jitendra Flores electronically signed on 11/09/2016 04:50 PM Ordering Physician: Jitendra Flores Performed By: Luz Reyes RDCS
--- NOTE | 2016-11-09 21:47 | GCON ---
[f rep st] CONSULTATION CARDIOLOGY CONSULTATION DATE OF CONSULTATION: 11/09/2016 REASON FOR CONSULTATION: Chest pain. HISTORY OF PRESENT ILLNESS: The patient is a pleasant 55-year-old gentleman with a known history of coronary artery disease with previous PCI x2. The patient is uncertain of the details around his previous cardiac intervention, who is a homeless gentleman, who lives in the area. He presented to [facility] after spending a night out in the rain with complaints of chest pain and chills that began over the night. He admits to associated complaints of shortness of breath. He describes his chest discomfort as substernal pressure, 7/10, nonradiating, and associated with some mild shortness of breath. He states the symptoms have been present consistently since last night. He denies any complaints of palpitations, dizziness, lightheadedness, near syncope, or syncope. However, he states he is unaware of the events surrounding the last several days. He states he has not had any alcohol. Currently, at the time of my exam, he is able to respond to questions appropriately. He does seem to be in some generalized discomfort, which seems more to be consistent with withdrawal than acute chest discomfort. REVIEW OF SYSTEMS: Negative with the exception of substernal chest pressure. PAST MEDICAL HISTORY: Notable for coronary artery disease, a history of alcoholism, depression, and history of polysubstance abuse, and history of suicidal ideation. MEDICATIONS ON ADMISSION: None. ALLERGIES: Codeine. PHYSICAL EXAMINATION: VITAL SIGNS: Blood pressure is 117/67, heart rate 78, respiratory rate of 16, oxygen saturation 99% on 2 L nasal cannula, temperature 36.5. GENERAL: He is awake. He is alert. He responds appropriately. He is in some mild generalized discomfort. He is moderately unkempt. NECK: There is no evidence of JVP or carotid bruits. CARDIAC: S1, S2. Regular rate and rhythm. No murmurs, rubs, or gallops. LUNGS: Clear to auscultation bilaterally. ABDOMEN: Soft, nontender, nondistended. There is no pulsatile mass or abdominal bruit. EXTREMITIES: He has no evidence of cyanosis, clubbing , or edema. LABORATORY DATA: White blood cell count of 12.6, hemoglobin 14, hematocrit 39, platelet count 262. INR is 1.06, sodium 137, potassium 4.4, chloride 101, bicarb 10, BUN 83, creatinine 1.9. Troponin 0.054, trending down to 0.026. N- terminal proBNP 926. UA is negative. Drug urine tox screen pending. Chest x-ray is unremarkable. EKG demonstrates normal sinus rhythm with normal intervals, normal axis. HI interval is within normal limits at 132 milliseconds. There is slight ST elevation isolated to lead AVF. No previous ECG for comparison. IMPRESSION: 1. Substernal chest pain. 2. History of coronary artery disease. 3. History of polysubstance abuse. The patient is a pleasant 55-year-old homeless gentleman who has been living outside for the last 2 days, and is unaware of the events of the last several days, who presented early this morning to the Emergency Department with substernal chest tightness. His initial troponin was mildly elevated with some mild renal insufficiency, as well with creatinine of 1.9, BUN of 83. His repeat troponin is within normal limits. His ECG is not consistent with acute injury pattern. He has isolated 0.[address] elevation isolated to lead aVF. At this point, would recommend continued serial cardiac enzymes. Recommend complete 2D echocardiogram, and reassess in the morning for consideration of stress testing versus left heart catheterization. He does seems to be going through some degree of withdrawal, so we will continue to follow him closely. PLAN: 1. Complete 2D echocardiogram. 2. Serial cardiac enzymes. 3. Supportive care. 4. Nuclear stress test for tomorrow unless troponins become positive. 30 minutes spent coordinating care /[id number]/MODL MTDD
[2016-11-09] MEDS: LORazepam 0.5 MG TAB PO PRN (23:40)
[2016-11-10 03:50] LABS: % IMMATURE GRANULYOCYTES 0.1 % (0.0-1.1); ABSOLUTE IMMATURE GRANULOCYTES 0.01 10^3/uL (0.00-0.10); ADD DIFF? NO; ADD MORPH? NO; ADD SCAN? NO; ATYPICAL LYMPHOCYTE FLAG 0 (0-99); FRAGMENT RBC FLAG 0 (0-99); HEMATOCRIT 31.4 % (40.0-51.0); HEMOGLOBIN 11.2 g/dL (13.7-17.5); LEFT SHIFT FLG 0 (0-99); LIPEMIA HEMOLYSIS FLAG 90 (0-99); MEAN CELL HEMOGLOBIN 30.9 pg (27.9-34.1); MEAN CELL HEMOGLOBIN CONCENTR. 35.7 g/dL (32.4-36.7); MEAN CELL VOLUME 86.7 fL (81.5-99.8); MEAN PLATELET VOLUME 9.3 fL (8.7-11.7); PLATELET CLUMPS FLAG 0 (0-99); PLATELET COUNT 173 10^3/uL (150-400); RED BLOOD CELL COUNT 3.62 10^6/uL (4.40-6.38); RED CELL DISTRIBUTION WIDTH 12.5 % (11.5-15.2)
[2016-11-10 04:37] LABS: ANION GAP 6 mEq/L (8-16); CALCIUM 8.1 mg/dL (8.5-10.4); CARBON DIOXIDE 21 mEq/l (22-31); CHLORIDE 107 mEq/L (97-110); CREATININE 0.9 mg/dL (0.7-1.3); GLOMERULAR FILTRATION RATE > 60; GLUCOSE 121 mg/dL (70-100); POTASSIUM 3.6 mEq/L (3.5-5.2); SODIUM 134 mEq/L (134-144)
[2016-11-10] MEDS: HEPARIN 5,000 UNIT/0.5 ML SYR SC SCH ×3 (06:12→21:28)
--- NOTE | 2016-11-10 09:10 | CPEKG ---
Heart Rate: 73 RR Interval: 822 P-R Interval: 116 QRSD Interval: 94 QT Interval: 404 QTC Interval: 446 P [place]: 30 QRS [place]: 76 T Wave [place]: 74 EKG Severity - NORMAL ECG - EKG Impression: SINUS RHYTHM Electronically Signed By: Rojelio Ellsworth 11-Nov-2016 07:02:20
[2016-11-10] MEDS: oxyCODONE IR 5 MG TAB PO PRN ×3 (09:52→21:28)
[2016-11-10] MEDS: LORazepam 0.5 MG TAB PO PRN ×2 (09:55→18:37)
--- NOTE | 2016-11-10 11:13 | PDCARPN ---
Cardiology Progress Note Chief Complaint: chest tightness Assessment/Plan: Assessment: -chest pain -hx of CAD -polysubstance abuse Plan: -Lexiscan nuclear stress test -supportive care 11/10/16 11:11 Subjective: Mr. Nguyen continues to describe constant sub sternal chest pressure since yesterday. Troponin is trending down. No events on telemetry. Objective: Vital Signs (8 Hrs) Temp Pulse Resp BP Pulse Ox 11/10/16 10:50 36.7 C 76 16 87/55 L 96 11/10/16 08:00 36.7 C 83 15 100/50 L 97 11/10/16 06:11 36.7 C 72 16 102/53 L 97 Intake/Output (24 Hrs) 11/09/16 11/10/16 11/11/16 05:59 05:59 05:59 Intake Total 4025 Output Total 1700 Balance 2325 Intake: Oral (ml) 1400 IV Infused (ml) 2625 Ns 1,000 ml @ 100 mls/hr 1625 IV CONT DEVORA Rx#: [id number] Output: Urine (ml) 1700 Urinal 1700 Other: Weight 53.6 kg Number of Voids Urinal 1 Post Void Residual Scan Volume (ml) Urinal 0 Result Diagrams: 11/10/16 03:30 11/10/16 03:30 Cardiac Labs: Cardiac Lab Results (72 Hrs) 11/09/16 11/09/16 18:30 13:05 Troponin I 0.026 0.026 - Physical Exam Constitutional: apparent distress Cardiovascular: regular rate and rhythm, no murmurs, no rubs, no gallops Respiratory: clear to auscultate bilat Neurologic: AAOx3 Psychiatric: cooperative, following commands ICD10 Worksheet Patient Problems: Problems Problem Status Onset Chest pain Acute Dehydration Acute Elevated troponin Acute Laceration of left wrist Acute Suicidal ideation Acute
[2016-11-10] MEDS ORDERED: THIAMINE HCL 500 MG in NS 100 ML IV ONE (15:52)
--- NOTE | 2016-11-10 15:54 | HOSPPROG ---
Hospitalist Progress Note Assessment/Plan: 55 yo M with PMH of CAD, etoh abuse presenting with ANDRY and chest pain as well as memory loss # chest pain: with hx of CAD and prior RI with stents but multiple ER visits/ hospitalization for similar pain without any identification of new issues including by cath in 2015. Initial trop indeterminant but negative since then, ecg w/o acute ischemic change, echo w/o wall motion abnormality--will get stress test in am # andry: likely pre renal and resolved overnight with IVF # memory loss: patient initially stating he was "partying" for several days, then stating he does not have any memory of the last several days. Utox c/w his report of methamphetamine use. Currently appears to have a normal mental status and suspect that memory loss is due to intoxication. # gait instability: per patient this is new, working with pt/ot and able to ambulate with walker, he does not have any nystagmus or ongoing memory loss so feel that Wernicke's is less likely but will start thiamine/mvi/folate # alcohol abuse: per patient this is largely in remission and he currently only drinks one or two days a week, no e/o withdrawal currently # depression with prior suicide attempts/suicidal ideation: recent hospitalization at [facility] for suicidal ideation, seems to be an ongoing/recurrent issue. Currently appears euthymic. # CAD: as per problem 1 # dispo: IP status, not safe for discharge given ongoing chest pain and inability to ambulate safely Subjective: no significant overnight events, patient walking with PT in the halls but very off balance and completely reliant on walker Objective: Vital Signs Temp Pulse Resp BP Pulse Ox 36.7 C 78 22 H 112/72 93 11/10/16 10:50 11/10/16 13:35 11/10/16 13:35 11/10/16 13:35 11/10/16 13:35 Laboratory Results 11/10/16 03:30 11/10/16 03:30 11/09/16 11/10/16 11/11/16 05:59 05:59 05:59 Intake Total 4025 Output Total 1700 500 Balance 2325 -500 PT 13.7 SEC (12.0-15.0) 11/09/16 08:30 INR 1.06 (0.83-1.16) 11/09/16 08:30 Constitutional: not in pain, chronically ill appearing, unkempt Eyes: PERRL Ears, Nose, Mouth, Throat: moist mucous membranes, hearing normal, poor dentition Cardiovascular: regular rate and rhythym, no murmur, rub, or gallop, No edema Respiratory: no respiratory distress, no rales or rhonchi, clear to auscultation Gastrointestinal: normoactive bowel sounds, soft, non-tender abdomen Genitourinary: no bladder tenderness Skin: warm, normal color Musculoskeletal: full muscle strength, no muscle tenderness Neurologic: AAOx3, walking with walker and placing one foot in front of the other like "tight rope" walker Psychiatric: interacting appropriately, not anxious ICD10 Worksheet Patient Problems: Problems Problem Status Onset Chest pain Acute Dehydration Acute Elevated troponin Acute Laceration of left wrist Acute Suicidal ideation Acute
[2016-11-10] MEDS: FOLIC ACID 1 MG TAB PO SCH (16:33)
[2016-11-10] MEDS: MULTIVITAMINS 1 EACH TAB PO SCH (16:33)
[2016-11-11] MEDS: LORazepam 0.5 MG TAB PO PRN ×2 (02:53→23:13)
[2016-11-11] MEDS: oxyCODONE IR 5 MG TAB PO PRN ×5 (02:53→20:56)
[2016-11-11] MEDS: HEPARIN 5,000 UNIT/0.5 ML SYR SC SCH ×3 (05:33→20:56)
--- NOTE | 2016-11-11 08:52 | CPEKG ---
Heart Rate: 80 RR Interval: 750 P-R Interval: 120 QRSD Interval: 82 QT Interval: 360 QTC Interval: 416 P [place]: 66 QRS [place]: 69 T Wave [place]: 66 EKG Severity - NORMAL ECG - EKG Impression: SINUS RHYTHM Electronically Signed By: Rojelio Ellsworth 11-Nov-2016 11:14:06
--- NOTE | 2016-11-11 08:52 | PDCARPN ---
Cardiology Progress Note Chief Complaint: chest pain Assessment/Plan: Assessment: coronary artery disease status post PCI Polysubstance abuse Presentation with borderline elevated troponin with creatinine of 1.9 Plan: - initial elevated troponin was likely related to renal insufficiency. Subsequent 2 troponins have been negative with constant ongoing chest pain for 48 hours. Plan on myocardial perfusion stress test this morning. EKG has been ordered and is pending. 11/11/16 08:50 Subjective: patient complains of constant ongoing chest pain for the past 3 days. There has been no change in the nature of his chest pain. I am assuming care today. Reviewed/Discussed With: hospitalist, multidisciplinary team Time Spent With Patient: 20 minutes Objective: Vital Signs (8 Hrs) Temp Pulse Resp BP Pulse Ox 11/11/16 03:49 36.8 C 88 16 106/73 92 Intake/Output (24 Hrs) 11/09/16 11/10/16 11/11/16 11:59 11:59 11:59 Intake Total 4800 Output Total 150 Balance 4650 Intake: Oral (ml) 2500 IV Infused (ml) 2300 Ns 1,000 ml @ 100 mls/hr 2300 IV CONT DEVORA Rx#: [id number] Output: Urine (ml) 150 Urinal 150 Result Diagrams: 11/10/16 03:30 11/10/16 03:30 Cardiac Labs: reviewed, troponin x2 have been negative EKG: pending at the time of this dictation Telemetry: sinus rhythm Echocardiogram: normal LV function - Physical Exam Eyes: PERRL, EOMI Ears, Nose, Mouth, Throat: moist mucous membranes Cardiovascular: regular rate and rhythm, no murmurs, no rubs, no gallops Respiratory: clear to auscultate bilat Gastrointestinal: normoactive bowel sounds ICD10 Worksheet Patient Problems: Problems Problem Status Onset Suicidal ideation Acute Laceration of left wrist Acute Chest pain Acute Elevated troponin Acute Dehydration Acute
[2016-11-11] MEDS ORDERED: REGADENOSON 0.4 MG/5 ML SYR IVP ONE (10:03)
--- NOTE | 2016-11-11 10:25 | HOSPPROG ---
Hospitalist Progress Note Assessment/Plan: 55 yo M with PMH of CAD, etoh abuse presenting with ANDRY and chest pain as well as memory loss. He is homeless and had a positive urine drug screen for methamphetamines at the time of admission. He has had ongoing chest pain for at least 2-3 days. # chest pain: With a history of coronary artery disease and prior ID with stents. He has had multiple previous ER visits without any identification of new issues including an angiogram in 2015. His troponins have improved since admission despite ongoing chest pain. Discussed patient in detail with cardiology. 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 Unclear how much of this is new or old. Will have speech cog eval done while he is here to see if he is appropriate for discharge. * Speech evaluation * Continue thiamine and folate # gait instability. Patient states this is new but I have a suspicion that this is not a new finding. He says he has been for quite unstable in the past when he drinks alcohol. * PT and OT # alcohol abuse # depression Subjective: Patient new to me and chart reviewed. Has ongoing chest pain which has been constant for at least 2-3 days. No shortness of breath no radiation patient looks quite comfortable and actually sleeping. Objective: Vital Signs Temp Pulse Resp BP Pulse Ox 36.8 C 88 16 106/73 92 11/11/16 03:49 11/11/16 03:49 11/11/16 03:49 11/11/16 03:49 11/11/16 03:49 11/10/16 11/11/16 11/12/16 05:59 05:59 05:59 Intake Total 4800 Output Total 150 Balance 4650 PT 13.7 SEC (12.0-15.0) 11/09/16 08:30 INR 1.06 (0.83-1.16) 11/09/16 08:30 - Physical Exam Constitutional: no apparent distress, not in pain, chronically ill appearing, unkempt Eyes: PERRL, EOMI Ears, Nose, Mouth, Throat: moist mucous membranes, hearing normal, poor dentition Cardiovascular: regular rate and rhythym, no murmur, rub, or gallop Respiratory: no respiratory distress, no rales or rhonchi, reduced air movement Gastrointestinal: normoactive bowel sounds, soft, non-tender abdomen Genitourinary: no bladder fullness Skin: warm Musculoskeletal: no muscle tenderness Neurologic: No facial droop Psychiatric: interacting appropriately, poor judgement, poor memory ICD10 Worksheet Patient Problems: Problems Problem Status Onset Suicidal ideation Acute Laceration of left wrist Acute Chest pain Acute Elevated troponin Acute Dehydration Acute
[2016-11-11] MEDS: NS 1,000 ML IV SCH (11:57)
[2016-11-11] MEDS: FOLIC ACID 1 MG TAB PO SCH (12:51)
[2016-11-11] MEDS: MULTIVITAMINS 1 EACH TAB PO SCH (12:51)
--- NOTE | 2016-11-11 14:08 | PDCARST ---
CAR Stress Test Results Type of Stress Test: Lexiscan stress test Indication: cp/CAD Description of Procedure: After informed consent was obtained, pt was established to ECG, blood pressure, HR and oximetry monitoring. STRESS EKG AND HEMODYNAMIC DATA. Resting heart rate: 80 BPM. Resting ECG: SR. Resting blood pressure: 148/80 mmHg. O2 saturation at rest: 94%. Peak heart rate: 80 BPM. Peak blood pressure: 133/76 mmHg. Arrhythmias: none. Symptoms: The patient experienced no typical symptoms of angina during stress or recovery. Stress/Infusion ECG: No change in rhythm with no significant ST/T wave changes. Stress/infusion O2 saturation: 96% Impression: Uneventful lexiscan infusion Conclusion: Await nuclear images.
[2016-11-11] MEDS ORDERED: PNEUMOCOCCAL 0.5ML VACCINE VIAL IM ONE (14:49)
[2016-11-11] MEDS: THIAMINE HCL 500 MG in NS 100 ML IV SCH (17:15)
[2016-11-12] MEDS ORDERED: THIAMINE HCL 500 MG in NS 100 ML IV SCH (00:53)
[2016-11-12] MEDS: oxyCODONE IR 5 MG TAB PO PRN ×6 (03:42→23:46)
[2016-11-12] MEDS: HEPARIN 5,000 UNIT/0.5 ML SYR SC SCH ×3 (06:12→23:46)
[2016-11-12] MEDS: MULTIVITAMINS 1 EACH TAB PO SCH (07:49)
[2016-11-12] MEDS: FOLIC ACID 1 MG TAB PO SCH (07:49)
[2016-11-12] MEDS: LORazepam 0.5 MG TAB PO PRN ×2 (07:58→19:39)
[2016-11-12] MEDS: THIAMINE HCL 500 MG in NS 100 ML IV SCH (10:54)
--- NOTE | 2016-11-12 12:26 | PDCARPN ---
Cardiology Progress Note Chief Complaint: Patient with complaints of chest pains Assessment/Plan: Assessment: Patient is a 55 y/o male with history of CAD s/p PCI (2 stents placed), Hep C, COPD, Depression, Anxiety, GERD, renal insufficiency, and poly substance abuse, with admission to [facility] with complaints of 7/10 chest pain with associated shortness of breath. Work up to date with cardiac biomarker assessment (peak elevation in troponin to 0.05 ng/mL), echocardiogram with normal wall motion ( hyperdynamic) and ejection fraction of >70%. Myocardial perfusion imaging with reportedly "no ischaemia" noted - there was a fixed defect appreciated. Patient with ongoing anxiety and complaints of chest pains. At present, the patient is working with OT, and reportedly mentioned that he was having "suicidal thoughts". Plan: (1) Concerns about withdrawal (2) Patient should be on therapy with ASA (81 mg per day) given history of CAD with PCI (3) Strong recommendations for smoking cessation (4) From a cardiovascular standpoint, no further cardiovascular testing is indicated - outpatient follow up is recommended given the history of CAD with PCI (5) Consideration of nephrology input (in outpatient setting) given the renal insufficiency noted Subjective: Mild chest pains with moderate degree of anxiety Reviewed/Discussed With: hospitalist Objective: Vital Signs (8 Hrs) Temp Pulse Resp BP Pulse Ox 11/12/16 10:57 36.6 C 93 16 127/74 H 96 11/12/16 07:33 91 L 11/12/16 07:32 36.9 C 91 16 130/65 H Intake/Output (24 Hrs) 11/11/16 11/12/16 11/13/16 05:59 05:59 05:59 Intake Total 4800 4634 Output Total 150 4050 Balance 4650 584 Intake: Oral (ml) 2500 2580 IV Infused (ml) 2300 4 Ns 1,000 ml @ 100 mls/hr 2300 7 IV CONT DEVORA Rx#: [id number] Thiamine HCl 500 mg In Ns 17 100 ml @ 210 mls/hr IV DAILY DEVORA Rx#:[id number] Output: Urine (ml) 150 4050 Urinal 150 4050 Result Diagrams: 11/10/16 03:30 11/10/16 03:30 Cardiac Labs: Cardiac Lab Results (72 Hrs) 08/05/17 08:55 Troponin I < 0.012 Telemetry: normal sinus rhythm with rate of 80 bpm Echocardiogram: EF was >70% by recent echocardiogram - Physical Exam Constitutional: apparent distress, other (anxiety) Eyes: PERRL, EOMI Ears, Nose, Mouth, Throat: moist mucous membranes Cardiovascular: regular rate and rhythm, no murmurs, no rubs, no gallops Peripheral Pulses: 2+: dorsalis-pedis (R), dorsalis-pedis (L) Respiratory: clear to auscultate bilat, no crackles, no wheezes Gastrointestinal: normoactive bowel sounds Skin: no edema, other (erythema to face) Musculoskeletal: no muscular tenderness, no joint effusions Neurologic: AAOx3, CN II-XII grossly intact Psychiatric: interactive, following commands, anxious, suicidal ideation ICD10 Worksheet Patient Problems: Problems Problem Status Onset Chest pain Acute Dehydration Acute Elevated troponin Acute Laceration of left wrist Acute Suicidal ideation Acute
[2016-11-12] MEDS: LORazepam 2 MG/ML INJ IVP PRN (12:49)
--- NOTE | 2016-11-12 13:04 | HOSPPROG ---
Hospitalist Progress Note Assessment/Plan: 55 yo M with PMH of CAD, etoh abuse presenting with ANDRY and chest pain as well as memory loss. He is homeless and had a positive urine drug screen for methamphetamines at the time of admission. He has had ongoing chest pain for at least 2-3 days. # chest pain: With a history of coronary artery disease and prior [place] with stents. He has had multiple previous ER visits without any identification of new issues including an angiogram in 2015. His troponins have improved since admission despite ongoing chest pain. Discussed patient in detail with cardiology. 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 I suspect this is all old, he is quite manipulative and at this time does not want to go home because he is homeless. # suicidal ideation. Patient states after I told me was being discharged that he wants to kill himself and walk into traffic. I will have TLC evaluate him he is stable for discharge medically # gait instability. Patient states this is new but I have a suspicion that this is not a new finding. He says he has been for quite unstable in the past when he drinks alcohol. * PT and OT # alcohol abuse # depression Subjective: Patient says he suicidal after I mentioned he would be discharged today. He is hopeless in his situation and does not want to leave. He is asking about needing clothes and shoes and does not have a place to go and said that if he was discharged he would walk into traffic and kill himself. Medically he is stable for discharge will have TLC evaluate Objective: Vital Signs Temp Pulse Resp BP Pulse Ox 36.6 C 93 16 127/74 H 96 11/12/16 10:57 11/12/16 10:57 11/12/16 10:57 11/12/16 10:57 11/12/16 10:57 11/11/16 11/12/16 11/13/16 05:59 05:59 05:59 Intake Total 4800 4634 Output Total 150 4050 Balance 4650 584 PT 13.7 SEC (12.0-15.0) 11/09/16 08:30 INR 1.06 (0.83-1.16) 11/09/16 08:30 - Physical Exam Constitutional: no apparent distress, chronically ill appearing Cardiovascular: regular rate and rhythym Respiratory: no respiratory distress, reduced air movement Skin: warm, other (Sunburn on his forehead and the upper face) Psychiatric: anxious, suicidal ideation, poor insight, poor judgement, poor memory ICD10 Worksheet Patient Problems: Problems Problem Status Onset Suicidal ideation Acute Laceration of left wrist Acute Chest pain Acute Elevated troponin Acute Dehydration Acute
[2016-11-12] MEDS: ACETAMINOPHEN 325 MG TAB PO PRN (17:06)
[2016-11-12] MEDS: NS 1,000 ML IV SCH (18:40)
[2016-11-13] MEDS: HEPARIN 5,000 UNIT/0.5 ML SYR SC SCH ×2 (06:21→13:57)
[2016-11-13] MEDS: oxyCODONE IR 5 MG TAB PO PRN (06:22)
[2016-11-13] MEDS: FOLIC ACID 1 MG TAB PO SCH (07:40)
[2016-11-13] MEDS: MULTIVITAMINS 1 EACH TAB PO SCH (07:40)
[2016-11-13] MEDS ORDERED: THIAMINE HCL 100 MG TAB PO SCH (09:00)
--- NOTE | 2016-11-13 10:24 | HOSPPROG ---
Hospitalist Progress Note Assessment/Plan: 55 yo M with PMH of CAD, etoh abuse presenting with ANDRY and chest pain as well as memory loss. He is homeless and had a positive urine drug screen for methamphetamines at the time of admission. He has had ongoing chest pain for at least 2-3 days. A negative Lexiscan stress test was done, I suspect this chest pain was likely secondary to his drug use. He was quite confused when he was admitted his mental status has cleared significantly since admission however there are concerns about his competency. He was also suicidal and TLC was evaluation was done, which cleared him As long as he is competent. # chest pain: With a history of coronary artery disease and prior AK with stents. He has had multiple previous ER visits without any identification of new issues including an angiogram in 2015. His troponins have improved since admission despite ongoing chest pain. Discussed patient in detail with Dr. workman. 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 I suspect this is all old, he is quite manipulative and at this time does not want to go home because he is homeless. * Continue IV thiamin * will do a ethics. evaluation for competency, I am reluctant to do it myself because I feel he has been manipulative and purposely missing questions in order to stay in the hospital longer. He was very resistant on being discharge. # suicidal ideation. Reviewed with behavioral health [employer]. She knows him well and states that he has been suicidal for many years and she currently feels that he is safe and is not suicidal but has more feelings of hopelessness. She has cleared him for discharge when medically stable if he is competent. # gait instability. Patient states this is new but I have a suspicion that this is not a new finding. He says he has been for quite unstable in the past when he drinks alcohol. * PT and OT # alcohol abuse # depression Subjective: He says he feels terrible. He is very nonspecific on what symptoms he is having I suspect some of this is withdrawal from drugs. He is not specifically complaining of chest pain. Objective: Vital Signs Temp Pulse Resp BP Pulse Ox 37.4 C 95 18 135/67 H 91 L 11/13/16 07:22 11/13/16 07:22 11/13/16 07:22 11/13/16 07:22 11/13/16 07:22 11/12/16 11/13/16 11/14/16 05:59 05:59 05:59 Intake Total 4634 1257 980 Output Total 4050 2625 1425 Balance 584 -6654 -610 PT 13.7 SEC (12.0-15.0) 11/09/16 08:30 INR 1.06 (0.83-1.16) 11/09/16 08:30 - Physical Exam Constitutional: chronically ill appearing, uncomfortable, unkempt Eyes: PERRL Ears, Nose, Mouth, Throat: moist mucous membranes, hearing normal, ears appear normal Cardiovascular: regular rate and rhythym, no murmur, rub, or gallop Respiratory: no respiratory distress, no rales or rhonchi, reduced air movement ( [place]) Gastrointestinal: normoactive bowel sounds, soft, non-tender abdomen Genitourinary: no bladder fullness Skin: warm, rash ( on face forehead and upper face appears to be a sun burn with blistering) Neurologic: AAOx3 ( alert and oriented times 4 yesterday with Behavioral Health) Psychiatric: interacting appropriately, not encephalopathic ICD10 Worksheet Patient Problems: Problems Problem Status Onset Suicidal ideation Acute Laceration of left wrist Acute Chest pain Acute Elevated troponin Acute Dehydration Acute
[2016-11-13] MEDS: ACETAMINOPHEN 325 MG TAB PO PRN (10:44)
[2016-11-13] MEDS: LORazepam 0.5 MG TAB PO PRN (10:44)
[2016-11-13] MEDS ORDERED: traMADol 50 MG TAB PO PRN (11:53)
[2016-11-13] MEDS ORDERED: LORazepam 0.5 MG TAB PO PRN (11:53)
[2016-11-13 12:40] VITALS: BP 113/71; PULSE 89; RESP 16; TEMP 98.9; O2SAT 90
[2016-11-13] MEDS ORDERED: THIAMINE HCL 500 MG in NS 100 ML IV SCH (14:00)
--- NOTE | 2016-11-14 11:05 | GDS ---
[f rep st] DISCHARGE SUMMARY DIAGNOSES: 1. Chest pain in the setting of active methamphetamine use. 2. Coronary artery disease, status post stent. 3. Ongoing drug use. 4. History of alcoholism. 5. Suicidal ideation, chronic. 6. Memory loss, chronic, secondary to his history of alcoholism. CONSULTATIONS: Cardiology and Mental Health. PROCEDURES DONE: Lexiscan stress test: Negative for ischemia. Echocardiogram: EF 65% to 70% with no wall motion abnormalities. HOSPITAL COURSE: The patient is a 55-year-old homeless man with a history of alcohol use and metham phetamine use. He came in with several days of ongoing chest pain. Troponins were negative. EKGs wer e nonischemic. He had Lexiscan stress test, which was negative for ischemia. On the day of discharge , he told the nurse that he was suicidal and planned to jump in front of traffic. He met with [facility], who knows him well from the past and states he is chronically suicidal and they fe lt that he was not actively suicidal and was safe for discharge home out of the hospital. We also sams d an ethics consult for competency, who felt that his story was consistent and, although he does hav e memory issues stemming from his chronic alcohol use, he seemed to know about his medical issues an d his plan was getting to [place], [place], where he could be seen in their medical system. He has f riends there and he was consistent in the story with Ethics, who felt that he likely was competent. Personally, during my interactions with him, he initially seemed manipulative because he wanted to s toya in the hospital and once we had a plan for him to go to [place], [place], he became much more ap propriate and seemed much more consistent and competent. PHYSICAL EXAMINATION: GENERAL: On the day of discharge, he was alert. He had been oriented x4. HEAR T: Regular. LUNGS: Clear. APPEARANCE: He was otherwise unkempt. VITAL SIGNS: Had been stable. 90% to 91% on room air, heart rate 89, blood pressure 113/71. DISCHARGE MEDICATIONS: Please see discharge medication form. FOLLOWUP: He will, per his request, be given a bus ticket for [place], [place], where he will [facility] in their medical system. He has been there previously and knows their medical system well. He also has friends and family in the area. Total time spent with patient on day of discharge in coordination of care is 45 minutes. /[id number]/MODL
== END 2016-11-13 16:55 | disposition home or self-care (01) | DRG 313 ==
LOC: EDUNIT# → F2W 10:40 → OBSVTOIN 11-10 15:48
PROVIDERS: ADMIT Internal Medicine; ATTEND Internal Medicine
DX: R07.9 Chest pain, unspecified (principal); F15.10 Other stimulant abuse, uncomplicated; F10.20 Alcohol dependence, uncomplicated; R41.3 Other amnesia; I25.10 Atherosclerotic heart disease of native coronary artery without angina pectoris; R45.851 Suicidal ideations; F32.9 Major depressive disorder, single episode, unspecified; R79.89 Other specified abnormal findings of blood chemistry; N17.9 Acute kidney failure, unspecified; R26.89 Other abnormalities of gait and mobility; E86.0 Dehydration; I10 Essential (primary) hypertension; F17.210 Nicotine dependence, cigarettes, uncomplicated; K21.9 Gastro-esophageal reflux disease without esophagitis; J44.9 Chronic obstructive pulmonary disease, unspecified; B19.20 Unspecified viral hepatitis C without hepatic coma; I25.2 Old myocardial infarction; F41.9 Anxiety disorder, unspecified; Z86.14 Personal history of Methicillin resistant Staphylococcus aureus infection; Z91.5 Personal history of self-harm; Z82.49 Family history of ischemic heart disease and other diseases of the circulatory system; Z95.5 Presence of coronary angioplasty implant and graft; Z59.0 Homelessness; Z23 Encounter for immunization
CPT/HCPCS: 80307; 92507-GN; 92523-GN; 96374; 97116-GP; 97162-GP; 97166-GO; 97535-GO; A9500; G0009; G0378; G0480; J2060; J2405; J2785; J3411